=== PATIENT | male | born 1970 | race American Indian/Alaskan Native ===

== ENCOUNTER 2017-07-15 09:43 | Day surgery (SDC) | payer OTHER ==
[2017-07-10 15:33] VITALS: RESP 18; BMI 40.8
[2017-07-15] MEDS ORDERED: Lidocaine 1% Inj (20ml) ONE (10:52)
[2017-07-15] MEDS ORDERED: Bupivacaine 0.5% Inj(30mL) ONE (10:53)
[2017-07-15] MEDS ORDERED: Lactated Ringer's 1,000 ML IV ONE (11:20)
--- NOTE | 2017-07-15 11:41 | CP.SDSHP ---
Same Day Surgery H & P - History Proposed Procedure: Left leg wound debridement with allograft application Pre-Op Diagnosis: left leg nonhealing ulceration - Previous Medical/Surgical History Previous Surgical History: split thickness skin graft - Allergies Allergies: Allergies No Known Allergies Allergy (Verified 07/15/17 10:00) - Physical Exam Vital Signs: Vital Signs 07/15/17 10:30 Temperature 97.8 F Pulse Rate 79 Respiratory 18 Rate Blood Pressure 147/84 O2 Sat by Pulse 97 Oximetry Mental Status: Alert & Oriented x3 - {Optional Preform as Required} Integument: Other (LLE venous insuffiency ulceration) - Impression Impression: Pt was seen and examined in [facility]. Pt NPO status was confirmed. All Pre-op testing and clearance was in the chart. Pt has exhausted all conservative treatment at this time and is opting for surgical intervention. Pt was explained procedure and post-operative course. All pt's questions were answered to satisfaction. No guarantees were made. Pt understands all risks, benefits and complications of procedure. Pt will follow-up with Dr. Alfonso Pt. Evaluated Today:Candidate for Anesthesia & Procedure: Yes - Date & Time Date: 07/15/17 Time: 11:43 Short Stay Discharge - Short Stay Discharge Admitting Diagnosis/Reason for Visit: I87.312 Disposition: HOME/ ROUTINE Referrals: FAMILY PROVIDER,NO [Primary Care Provider] - Progress Note/Discharge Note with Instructions: Patient in good/stable condition for discharge home. Pt to resume medications per medical reconciliation. Resume regular diet. Please keep dressing clean, dry, & intact to surgical site, use plastic bag over bandage for showering, wear post op shoe at all times when ambulating, call clinic if you see signs of infection (redness, swelling, malodor), please make an appointment to see Dr. Alfonso in office within 1 week for post-op check.
--- NOTE | 2017-07-15 11:41 | CP.PCM.PN ---
Subjective - Date & Time of Evaluation Date of Evaluation: 07/15/17 Time of Evaluation: 15:00 - Subjective Subjective: 46 year old male seen in [facility] for pre-operative evaluation for left lower extremity wound debridement by Dr. Alfonso today. Patient has been having a lot of pain on her left foot and ankle and has exhausted conservative treatment and now opts for surgical intervention. NPO status confirmed. Patient is NAD and AAOx3, denies n/v/f/c/sob/cp. Objective - Vital Signs/Intake and Output Vital Signs (last 24 hours): Temp Pulse Resp BP Pulse Ox 97.8 F 79 18 147/84 97 07/15/17 10:30 07/15/17 10:30 07/15/17 10:30 07/15/17 10:30 07/15/17 10:30 - Constitutional Appears: Well, Non-toxic, No Acute Distress - Extremities Exam Additional comments: Dressing to LLE appears clean/dry/intact with no strikethrough noted - Neurological Exam Neurological Exam: Alert, Awake, Oriented x3 - Psychiatric Exam Psychiatric exam: Normal Affect, Normal Mood Assessment and Plan - Assessment and Plan (Free Text) Assessment: 46 year old male patient with chronic nonhealing LLE ulceration Plan: Pt was seen and examined in [facility] Pt NPO status was confirmed All Pre-op testing and clearance was in the chart Pt has exhausted all conservative treatment at this time and is opting for surgical intervention Pt was explained procedure and post-operative course All pt's questions were answered to satisfaction No guarantees were made Pt understands all risks, benefits and complications of procedure Pt will follow-up with Dr. Alfonso in office for post operative care
[2017-07-15] MEDS ORDERED: ceFAZolin 2 GM in Sodium Chloride 0.9% 100 ML IVPB ONE (11:45)
[2017-07-15] MEDS ORDERED: Bupivacaine 0.5% Inj(30mL) IJ ONE (11:45)
[2017-07-15] MEDS ORDERED: Sodium Chloride 0.9% 500 ML IV SCH (11:45)
[2017-07-15] MEDS ORDERED: Lidocaine 1% Inj (20ml) IJ ONE (11:45)
[2017-07-15] MEDS ORDERED: Rocuronium 10 mg/ml (5 ml) ONE (12:05)
[2017-07-15] MEDS ORDERED: Propofol 10 mg/ml Inj (20 ML) ONE ×2 (12:05→12:23)
[2017-07-15] MEDS ORDERED: Succinylcholine 200 mg/10 ml Inj IV ONE (12:05)
[2017-07-15] MEDS ORDERED: Phenylephrine 10 mg/ml Inj ONE (12:05)
[2017-07-15] MEDS ORDERED: Midazolam 2 MG/2 ML VIAL ONE (12:06)
[2017-07-15] MEDS ORDERED: Ketamine 50 mg/ml Inj (10 ml) ONE (12:17)
[2017-07-15] MEDS ORDERED: Labetalol 5mg/ml (4ml) ONE (12:35)
[2017-07-15] MEDS: HYDROmorphone 0.5 mg/0.5 ml ISec IVP PRN ×4 (12:58→13:17)
[2017-07-15] MEDS ORDERED: HYDROmorphone 0.5 mg/0.5 ml ISec ONE (12:58)
--- NOTE | 2017-07-15 13:00 | PCM.SURG1 ---
Surgeon's Initial Post Op Note - Surgeon's Notes Surgeon: Dr. August Alfonso Pressure Dispatcher: Dr. Gilda Chowdhury PGY-1 Type of Anesthesia: IV Sedation Anesthesia Administered By: Dr. Patel Pre-Operative Diagnosis: left leg non-healing venous stasis ulceration Operative Findings: see op report. 20 cc 1:1 mix 1% Lidocaine plain and 0.5% Marcaine plain. 9.0 x 9.0cm EpiXL amniotic membrane allograft Post-Operative Diagnosis: same Operation Performed: incision and drainage with excisional debridement of all non-viable soft tissue from left leg ulceration with application of amniotic allograft Specimen/Specimens Removed: none Estimated Blood Loss: EBL {In ML}: 10 Blood Products Given: N/A Drains Used: No Drains Post-Op Condition: Good Date of Surgery/Procedure: 07/15/17 Time of Surgery/Procedure: 12:00
[2017-07-15] MEDS ORDERED: Oxycodone/Acetaminophen 5/325 mg Tab PO PRN ×2 (13:01)
[2017-07-15 14:45] VITALS: O2SAT 97
[2017-07-15 15:41] VITALS: BP 132/76; PULSE 78; TEMP 97.2
--- NOTE | 2017-07-16 22:51 | OP ---
PROCEDURE DATE: 07/15/2017 SURGEON: August Alfonso DPM JUNCTION MAKER: Gilda Chowdhury DPM, PGY1 ANESTHESIA ADMINISTERED BY: Dr. Patel. ANESTHESIA: IV sedation with local. PREOPERATIVE DIAGNOSIS: Left leg nonhealing venous stasis ulceration. POSTOPERATIVE DIAGNOSIS: Left leg nonhealing venous stasis ulceration. NAME OF PROCEDURE: Left leg wound debridement with Versajet with application of EpiFix amniotic allograft. INDICATIONS: The patient is a 46-year-old male with the above diagnosis. The patient has exhausted all conservative treatment at this time and now requires surgical intervention. The patient has signed a consent after careful explanation of risks, benefits, complications, and alternatives for surgical procedure. No guarantees were given nor implied. N.p.o. status was confirmed prior to taking the patient to the OR. DESCRIPTION OF PROCEDURE: The patient was brought into the operating room and placed on the operating room table in a supine position. Time-out was performed for identification of the correct patient and procedure. After induction of IV sedation, the patient received a total of 20 mL of a 1:1 mixture of 0.5% Marcaine plain and 1% lidocaine plain in a V-block fashion to the left leg. Once local anesthesia was achieved, the left lower extremity was then prepped and draped in normal sterile manner and the procedure began. No tourniquet was utilized during the procedure. Attention was directed to the anterior aspect of the left leg where an approximately 15 x 12 x 0.2 cm ulceration was noted. The ulceration was composed of granular and fibrotic tissue with airspace with no visible bone exposure with skin flaps that were hyperpigmented and nonviable. No drainage was noted to the wound bed. A Versajet mechanical debridement tool was then used to remove all fibrotic and nonviable tissue from the wound base and the wound margins. The surgical site was then irrigated using the Irrisept two-step system. At this time, a 9.0 x 9.0 cm EpiFix XL amniotic membrane allograft was then cut into several pieces in order to cover all wound margins and provide partial coverage to the wound bed. The site was then dressed with Adaptic, 4 x 4 gauze, Kerlix and an Ayden bandage. POSTOPERATIVE CONDITION: The patient tolerated the anesthesia and procedure well and was escorted to the recovery room with vital signs stable and neurovascular status intact to the left lower extremity. The patient is to be weightbearing as tolerated to the left lower extremity using a surgical shoe. The patient will be discharged home in stable condition and will follow up with Dr. Alfonso in his office within 1 week. Gilda Chowdhury DPM August Alfonso DPM
== END 2017-07-15 16:00 | disposition home or self-care (01) ==
LOC: H.OPSURG 09:43
PROVIDERS: ATTEND Podiatrist Foot & Ankle Surgery
DX: I87.312 Chronic venous hypertension (idiopathic) with ulcer of left lower extremity (principal); R06.83 Snoring; E66.01 Morbid (severe) obesity due to excess calories
CPT/HCPCS: 15002; 15271; J0330; J0690; J1170; J2001; J2250; J2370; J2704; J3010; J7030; J7120